=== PATIENT | male | born 1970 | race Caucasian/White ===

== ENCOUNTER → 2017-06-25 | Outpatient (REF) | payer BC ==
[~2017-06-25] MED LIST: ASPI-715 PO; CELE50CA2 PO; CIPR500S2 PO; LISI-362 PO; MET500 PO; METR-1 PO; OMEP-218 PO; PRA20 PO; PRE20 PO
== END ==
PROVIDERS: ATTEND Nurse Practitioner Family
DX: R21 Rash and other nonspecific skin eruption (principal)
CPT/HCPCS: 87070